=== PATIENT | female | born 1950 | race Caucasian/White ===

== ENCOUNTER 2017-02-02 01:28 | Observation (INO) ==
[2017-02-02] MEDS ORDERED: Aspirin 81 MG TAB.CHEW PO ONE (01:44)
--- NOTE | 2017-02-02 01:45 | Emergency Department Note ---
Disposition Clinical Impression: Chest pain of uncertain etiology Disposition: Admitted As Inpatient Condition: Fair Time of Disposition: 04:15 Chest Pain HPI - General Chief Complaint: ED Chest Pain Stated Complaint: Chest pain Time Seen by Provider: 02/02/17 01:41 Source: patient Limitations: no limitations Vital Signs Reviewed: Yes Nursing Notes Reviewed: Yes - History of Present Illness HPI Narrative: Ms. Henry, 66-year-old female, presents from home by EMS with concerns of chest pain. Patient notes this started 2 weeks ago and has been intermittent. Described as a sharp stabbing located at the left lower sternal border and beneath her breast with radiation toward her shoulder and interscapular daily. Worse with deep inspiration and with cough. Patient notes that she recovered from bronchitis 2 weeks ago after which her chest pain began. She was previously evaluated at outside hospital hospital and told she had musculoskeletal pain secondary to cough secondary to bronchitis. Her pain has persisted and worsened despite having not coughed in the past 2 weeks. She has associated dyspnea. No nausea, vomiting, diaphoresis. Does have a history of NM without stents. PMH: CHF, COPD, ACS without stents. Severity scale (1-10): 8 - Related Data Home Medications Medication Instructions Recorded Confirmed Clopidogrel [Plavix] 20 mg PO DAILY 02/02/17 02/02/17 Gabapentin [Neurontin] 200 mg PO BID 02/02/17 02/02/17 Levothyroxine [Synthroid] 50 mcg PO DAILY 02/02/17 02/02/17 Metoprolol XL (24 HR) Succ [Toprol 10 mg PO DAILY 02/02/17 02/02/17 XL] Ropinirole HCl [Requip] 3 mg PO BID 02/02/17 02/02/17 Simvastatin [Zocor] 25 mg PO DAILY 02/02/17 02/02/17 Allergies Allergy/AdvReac Type Severity Reaction Status Date / Time No Known Allergies Allergy Verified 02/02/17 01:32 All systems ED: reviewed and negative except as stated. Chest Pain PMH - Past Medical History Medical history: Reports: CHF, COPD, myocardial infarction, TIA - Social History Smoking Status: Never smoker Alcohol use: Reports: none Drug use: Reports: none Physical Exam Vital Signs Reviewed General: Patient is alert, oriented, and in no acute distress. HEENT: No facial asymmetry. Head is normocephalic and atraumatic. PERRLA. Oral mucosa moist. Trachea midline. Cardiovascular: Heart regular rate and rhythm without clicks, rubs, gallops, or murmurs. No JVD. PMI nondisplaced. 1+ pitting pedal edema bilaterally. Posterior tibial and bilateral radial pulses equal and 2/4. No carotid bruit. No parasternal pain to palpation. Respiratory: Symmetric chest rise with good respiratory effort. Bilateral breath sounds are clear without wheezing, crackles, or rhonchi. Abdomen: Bowel sounds present normoactive -4 quadrants. Abdomen is soft, nondistended, and nontender. No organomegaly noted. Musculoskeletal: Left-sided rib pain beneath the patient's breast extending to the left axillary line. Soft tissue tenderness the patient's left shoulder in the distribution of the pectoralis minor. Psych: Patient's affect is appropriate for situation. - General Limitations: no limitations General appearance: alert, in no apparent distress Course Course Narrative: Patient's history is concerning with her also comorbidities including previous NM. With her previous NM, she was completely asymptomatic. The patient does appear to have a musculoskeletal component of reported pain, however she does have some concerning characteristics such as radiation interscapular. She does not have any parasternal pain to palpation. EKG is unremarkable. Chest x-ray negative as read by radiology. Lab work is unremarkable specifically negative troponin. Patient vital signs remained stable and patient is stable. I discussed the patient concerns for chest pain of uncertain etiology and the need to rule out acute coronary syndrome. She agrees to admission to the hospital for continued evaluation. Spoke with the admitting hospitalist who agrees to accept her to his service. Vital Signs Temperature 98.1 F 02/02/17 01:30 Pulse Rate 104 02/02/17 01:30 Respiratory Rate 22 02/02/17 01:30 Blood Pressure 176/92 02/02/17 01:30 O2 Sat by Pulse Oximetry 96 02/02/17 01:30 Temperature 98.1 F 02/02/17 01:30 Pulse Rate 88 02/02/17 03:27 Respiratory Rate 18 02/02/17 03:27 Blood Pressure 138/69 02/02/17 03:27 O2 Sat by Pulse Oximetry 95 02/02/17 03:27 Oxygen Delivery Oxygen Delivery Room Air Chest Pain - Lab Data Lab results reviewed: Yes I reviewed the patient's lab results. Result diagrams: 02/02/17 01:50 02/02/17 01:50 Lab Results 02/02/17 02/02/17 02/02/17 Range/Units 01:50 01:50 01:50 WBC 11.5 H (4.3-11.1) K/mcL RBC 4.48 (3.82-4.97) M/mcL Hgb 12.6 (11.5-15.4) g/dL Hct 38.7 (35.3-44.9) % MCV 86.4 (83.0-100.0) fL MCH 28.1 (28.0-33.3) pg MCHC 32.6 (31.6-35.5) g/dL RDW 13.9 (11.5-14.5) % Plt Count 242 (140-400) K/mcL MPV 10.1 (9.4-12.4) fL Immature Gran % 0.4 (0-4) % Seg Neutrophils % 62.8 % Lymphocytes % 27.2 % Monocytes % 7.7 % Eosinophils % 1.4 % Basophils % 0.5 % Neutrophils # 7.2 (1.6-8.9) K/mcL Lymphocytes # 3.1 (0.6-4.6) K/mcL Monocytes # 0.9 (0.0-1.3) K/mcL Eosinophils # 0.2 (0.0-0.6) K/mcL Basophils # 0.1 (0.0-0.2) K/mcL PT 10.9 (9.4-12.1) Seconds INR 1.0 APTT 30.7 (26.0-36.0) Seconds Sodium 141 (136-145) mEq/L Potassium 3.3 L (3.5-4.5) mEq/L Chloride 103 (98-109) mEq/L Carbon Dioxide 28 (19-29) mEq/L BUN 22 H (7-20) mg/dL Creatinine 0.94 (0.57-1.11) mg/dL Est GFR ( Amer) > 60 (> 60) Est GFR (Non-Af Amer) 60 (> 60) BUN/Creatinine Ratio 23 (6-26) Glucose 116 H (70-99) mg/dL Calculated Osmolality 296 (280-300) Calcium 9.0 (8.6-10.8) mg/dL Troponin I (0-0.03) ng/mL Lipase 36 (8-78) Units/L 02/02/17 Range/Units 01:50 WBC (4.3-11.1) K/mcL RBC (3.82-4.97) M/mcL Hgb (11.5-15.4) g/dL Hct (35.3-44.9) % MCV (83.0-100.0) fL MCH (28.0-33.3) pg MCHC (31.6-35.5) g/dL RDW (11.5-14.5) % Plt Count (140-400) K/mcL MPV (9.4-12.4) fL Immature Gran % (0-4) % Seg Neutrophils % % Lymphocytes % % Monocytes % % Eosinophils % % Basophils % % Neutrophils # (1.6-8.9) K/mcL Lymphocytes # (0.6-4.6) K/mcL Monocytes # (0.0-1.3) K/mcL Eosinophils # (0.0-0.6) K/mcL Basophils # (0.0-0.2) K/mcL PT (9.4-12.1) Seconds INR APTT (26.0-36.0) Seconds Sodium (136-145) mEq/L Potassium (3.5-4.5) mEq/L Chloride (98-109) mEq/L Carbon Dioxide (19-29) mEq/L BUN (7-20) mg/dL Creatinine (0.57-1.11) mg/dL Est GFR ( Amer) (> 60) Est GFR (Non-Af Amer) (> 60) BUN/Creatinine Ratio (6-26) Glucose (70-99) mg/dL Calculated Osmolality (280-300) Calcium (8.6-10.8) mg/dL Troponin I 0.01 (0-0.03) ng/mL Lipase (8-78) Units/L - Radiology Data Radiology results reviewed: Yes I reviewed the patient's radiology results. Chest X-Ray 02/02/17 01:44 IMPRESSION: No acute cardiopulmonary disease D/ / Dennis Ba MD / Dennis Ba MD Interpreting Provider: Dennis Ba MD - EKG Data EKG attestation: Yes I reviewed and interpreted this EKG. EKG results narrative: EKG dated 02/02/17 at 01:36 interpreted as sinus tachycardia with rate of 103. Normal intervals. 160, QRS 106, QT/QTC 344/43. Left axis. Nonspecific ST-T changes. No previous EKG for comparison. Heart Score - Score History: Slightly Suspicious EKG: Non Specific repolarisation Disturbance Age: 45-65 Risk Factors: Equal/Greater than 3 risk factor or history of atherosclerotic disease Troponin: Less than normal limit HEART Score Total: 4
[2017-02-02 01:59] LABS: Basophils # 0.1 K/mcL (0.0-0.2); Basophils % 0.5 %; Eosinophils # 0.2 K/mcL (0.0-0.6); Eosinophils % 1.4 %; Hematocrit 38.7 % (35.3-44.9); Hemoglobin 12.6 g/dL (11.5-15.4); Immature Granulocytes % 0.4 % (0-4); Lymphocytes # 3.1 K/mcL (0.6-4.6); Lymphocytes % 27.2 %; Mean Corpuscular HGB Conc 32.6 g/dL (31.6-35.5); Mean Corpuscular Hemoglobin 28.1 pg (28.0-33.3); Mean Corpuscular Volume 86.4 fL (83.0-100.0); Mean Platelet Volume 10.1 fL (9.4-12.4); Monocytes # 0.9 K/mcL (0.0-1.3); Monocytes % 7.7 %; Neutrophils # 7.2 K/mcL (1.6-8.9); Platelet Count 242 K/mcL (140-400); Red Blood Count 4.48 M/mcL (3.82-4.97); Red Cell Distribution Width 13.9 % (11.5-14.5); Segmented Neutrophils % 62.8 %
[2017-02-02 02:05] LABS: Prothrombin Time 10.9 Seconds (9.4-12.1)
[2017-02-02 02:08] LABS: Activated Partial Thrombo Time 30.7 Seconds (26.0-36.0)
[2017-02-02 02:14] LABS: BUN/Creatinine Ratio 23 (6-26); Blood Urea Nitrogen 22 mg/dL (7-20); Carbon Dioxide 28 mEq/L (19-29); Chloride 103 mEq/L (98-109); Glucose 116 mg/dL (70-99); Lipase 36 Units/L (8-78); Osmolality,Calculated 296 (280-300); Potassium 3.3 mEq/L (3.5-4.5); Sodium 141 mEq/L (136-145); eGFR For African Americans > 60 (> 60); eGFR For Non-African Americans 60 (> 60)
[2017-02-02] MEDS ORDERED: Aspirin 81 MG TAB.CHEW PO STA (02:42)
--- NOTE | 2017-02-02 02:42 | Emergency Department Note ---
START Narrative - START START: I examined this patient and my medical decision-making was reviewed with the MULTIMEDIA PRODUCER/PA/Advanced Practice Nurse/Resident Physician. I agree with the documented findings, disposition and treatment plan as described except to the extent set forth below. ED attending note: Patient seen with emergency medicine resident Dr. Boland. Please see a copy of his note for details of the H&P, evaluation, management and disposition of this patient. We independently had [id number] contact with the patient Briefly: This 66-year-old female history of prior heart attack smoker hypertensive presents here with chest pain no radiation to the neck or shoulder mild shortness of breath. No recent stress test. EKG nonspecific ST-T changes no acute ischemic changes noted. Troponin negative. Heart scores for which is equivalent to moderate risk. Patient will be recommended admission awaiting callback of hospitalist. The patient got aspirin. Disposition pending
[2017-02-02] MEDS ORDERED: Ondansetron 4 MG/2 ML VIAL IVP PRN (04:05)
[2017-02-02] MEDS ORDERED: Naloxone 0.4 MG/ML INJ IVP PRN (04:05)
[2017-02-02] MEDS: *HR* Heparin 5,000 UNIT/ML VIAL SQ SCH ×2 (04:49→18:19)
--- NOTE | 2017-02-02 05:09 | Internal Med History&Physical ---
Date of Encounter: 02/02/17 Time of Encounter: 04:55 Assessment and Plan (1) Chest pain of uncertain etiology Current visit: Yes Status: Acute Given cardiac history and clinical presentation, will admit to rule out ACS serial TNI, EKG pharm nuclear stress test in am f/u 2D echo consider cardiology evaluation if any of the above tests are positive for ischemia or new valvular dysfunction/worsening of LVEF nitroglycerin SL prn chest pain O2 supplementation as needed tele monitoring NPO at this time for cardiac testing (2) Hypertension Current visit: Yes Status: Chronic BP within acceptable range continue home medications Qualifiers: Hypertension type: essential hypertension Qualified Code(s): I10 - Essential (primary) hypertension (3) HLD (hyperlipidemia) Current visit: Yes Status: Chronic continue statin Qualifiers: Hyperlipidemia type: unspecified Qualified Code(s): E78.5 - Hyperlipidemia , unspecified (4) CHF (congestive heart failure) Current visit: Yes Status: Chronic no acute signs of CHF decompensation continue home medications Qualifiers: Congestive heart failure type: unspecified congestive heart failure type Congestive heart failure chronicity: chronic Qualified Code(s): I50.9 - Heart failure, unspecified (5) DVT prophylaxis Current visit: Yes Status: Acute Heparin SQ (6) Hypothyroidism Current visit: Yes Status: Chronic continue home meds Qualifiers: Hypothyroidism type: unspecified Qualified Code(s): E03.9 - Hypothyroidism , unspecified (7) Morbid obesity with BMI of 40.0-44.9, adult Current visit: Yes Status: Chronic Internal Medicine - H&P: HPI Chief complaint: chest pain Admitted From: Home Plans for Post Hospital Care: Home History of present illness: Ms. Henry is a 66 year old female with PMH of COPD, HTN, HLD, CHF, morbid obesity, hypothyroidism, and previous [place] who is admitted for evaluation of chest pain. Patient reports of having left lateral wall chest pain for the last two weeks secondary to severe coughing from acute bronchitis. However, last night she started having left sided chest pain with radiation to the neck and her left arm, which was similar to the pain she had when she had her [place] six years ago. States the pain resolved spontaneously but due to her [place] history she came to the ER for further evaluation. At this time she is resting comfortably in bed and denies any pain. Denies any cough, sob, palpitations, abd pain, n/v, fever, or chills. Patient reports of never smoking and has COPD due to second hand smoke. Not on home oxygen. Past Med Surg Social Fam HX - Past Medical History Medical history: CHF, COPD, myocardial infarction, TIA Psychiatric history: depression - Past Surgical History Surgical History: breast surgery, hysterectomy, knee replacement - Social History Smoking Status: Never smoker Smokeless Tobacco Status: No Alcohol use: none Drug use: none - Family History Mother Living Status: Age at : 87 Hx Family Cardiac Disorders: Yes (CHF) Hx Family Endocrine Disorder: Yes (DM) Father Living Status: Age at : 52 Hx Family Cardiac Disorders: Yes ([place]) Internal Medicine - H&P: Meds Clopidogrel [Plavix] 75 mg PO DAILY 02/02/17 [History] Furosemide [Lasix] 40 mg PO DAILY 02/02/17 [History] Gabapentin [Neurontin] 200 mg PO BID 02/02/17 [History] Levothyroxine [Synthroid] 50 mcg PO DAILY 02/02/17 [History] Metoprolol XL (24 HR) Succ [Toprol XL] 25 mg PO DAILY 02/02/17 [History] Potassium Chloride [K-Tab ER] 20 mg PO DAILY 02/02/17 [History] Ropinirole HCl [Requip] 3 mg PO BID 02/02/17 [History] Simvastatin [Zocor] 10 mg PO DAILY 02/02/17 [History] Allergies No Known Allergies Allergy (Verified 02/02/17 01:32) All Systems PM: A 10-system review of systems was performed and is negative for pertinent findings except as documented above in the HPI. - Constitutional Constitutional: as per HPI - Constitutional Vitals: Temp Pulse Resp BP Pulse Ox 97.9 F 81 15 122/76 96 02/02/17 04:21 02/02/17 04:21 02/02/17 04:21 02/02/17 04:21 02/02/17 04:21 General appearance: Present: cooperative, A&O X 3, morbidly obese, no acute distress, answers questions appropriately - Head Head exam: Present: atraumatic, normocephalic - Respiratory Respiratory exam: Present: CTAB. Absent: respiratory distress, wheezes - Cardiovascular Cardiovascular exam: Present: RRR, +S1, +S2. Absent: diastolic murmur, gallop, rubs, systolic murmur - GI/Abdominal GI/Abdominal exam: Present: normal bowel sounds, soft, no peritoneal signs. Absent: distended, tenderness - Extremities Exam Extremities exam: Present: pedal edema (trace ankle edema), warm, radial pulses palpable and symetrical. Absent: calf tenderness - Neurological Exam Neurological exam: Present: alert, oriented X3 - Psychiatric Psychiatric exam: Present: normal affect, normal mood Internal Med - H&P Results - Labs CBC & Chem 7: 02/02/17 01:50 02/02/17 01:50
[2017-02-02] MEDS ORDERED: Nitroglycerin 0.4 MG TAB.SUBL SL PRN (05:12)
[2017-02-02] MEDS ORDERED: Regadenoson 0.4 MG/5 ML SYRINGE IVP ONE (06:14)
[2017-02-02 06:27] LABS: Chol/HDL Ratio 4.8 (0-4.9)
[2017-02-02] MEDS ORDERED: Perflutren Lipid Microsphere 1.3 ML in 0.9 % Sodium Chloride 8.7 ML IVP ONE (09:09)
[2017-02-02] MEDS: Furosemide 40 MG TABLET PO SCH (10:06)
[2017-02-02] MEDS: Gabapentin 100 MG CAPSULE PO SCH ×2 (10:06→20:43)
[2017-02-02] MEDS: Metoprolol XL (24 HR) Succ 25 MG TAB.ER.24H PO SCH (10:06)
--- NOTE | 2017-02-02 13:38 | Electrocardiograph Report ---
[address] [place] [address] Test Date: 2017-02-02 Pat Name: Yue Henry Department: 104 Room: 3B Gender: F Scientific Illustrator: TAMEKA : 1950 Requested By: Frankie Boland Order Number: [id number] Reading MD: Chris Kaur MD Measurements Intervals Perkins Rate: 103 P: 63 NV: 160 QRS: -31 QRSD: 106 T: 46 QT: 344 QTc: 403 Interpretive Statements SINUS TACHYCARDIA MARKED LEFT AXIS DEVIATION BASELINE ARTIFACT Poor R wave progression Electronically Signed On 02-02-2017 13:37:17 EDT by Chris Kaur MD
--- NOTE | 2017-02-02 17:14 | Event Note ---
Date of Encounter: 02/02/17 Time of Encounter: 12:30 Patient seen and examined. On examination, patient sitting upright in bed initially sleep and awakened easily to voice. Once awake, patient stating that she is weak and tired. She states that she has been increasingly more weak and tired for the past several months. She states she was able to ambulate to and from the bathroom and states that her gait felt steady but she still felt weak. She was offered occupational and physical therapy evaluations but declined. Chest x-ray negative. Echocardiogram unremarkable with ejection fraction of 60 % and mild diastolic dysfunction. Patient denies pedal edema. On examination, trace, nonpitting edema noted bilaterally. Patient denies shortness of breath above her norm. She is tolerating room air well. Second part of her stress test this tomorrow, will await results. In the meantime, regarding her increased weakness over the past several months, we will check TSH, B12, folate and A1C levels although suspect lifestyle and morbid obesity is playing a factor , will rule out other causes. Patient also stating that she has severe restless leg syndrome and states that she had a sleep study that revealed that her legs jerk approximately every 7 seconds while asleep. This could also be a contributing factor but she was diagnosed with RLS and started on Requip 7 years ago and her increased fatigue has only been for a few months. Awaiting second part of stress test tomorrow. ITS Impressions Chest X-Ray 02/02/17 01:44 IMPRESSION: No acute cardiopulmonary disease D/ / Dennis Ba MD / Dennis Ba MD Interpreting Provider: Dennis Ba MD Echo with imaging enhancement agent impressions: LVEF 60%. Normal LV chamber size, wall thickness and function. Mild left ventricular diastolic dysfunction. Definity echo contrast was used. RV size and function appears normal but is not well visualized in all views. No significant valvular dysfunction. No pulmonary hypertension.
[2017-02-03] MEDS: *HR* Heparin 5,000 UNIT/ML VIAL SQ SCH (06:08)
[2017-02-03 06:33] LABS: BUN/Creatinine Ratio 24 (6-26); Blood Urea Nitrogen 20 mg/dL (7-20); Calcium 8.6 mg/dL (8.6-10.8); Carbon Dioxide 31 mEq/L (19-29); Chloride 104 mEq/L (98-109); Glucose 96 mg/dL (70-99); Magnesium 2.1 mg/dL (1.6-2.6); Osmolality,Calculated 294 (280-300); Phosphorous 3.5 mg/dL (2.3-4.7); Potassium 4.1 mEq/L (3.5-4.5); Sodium 141 mEq/L (136-145); eGFR For African Americans > 60 (> 60); eGFR For Non-African Americans > 60 (> 60)
[2017-02-03 06:55] LABS: Thyroid Stimulating Hormone 1.314 mcIU/mL (0.350-4.840)
[2017-02-03 07:02] LABS: Folate 10.4 ng/mL (7.0-31.4)
[2017-02-03 08:28] LABS: Basophils # 0.1 K/mcL (0.0-0.2); Basophils % 0.7 %; Eosinophils # 0.3 K/mcL (0.0-0.6); Eosinophils % 3.3 %; Hematocrit 37.4 % (35.3-44.9); Hemoglobin 11.5 g/dL (11.5-15.4); Immature Granulocytes % 0.5 % (0-4); Lymphocytes # 2.2 K/mcL (0.6-4.6); Lymphocytes % 28.8 %; Mean Corpuscular HGB Conc 30.7 g/dL (31.6-35.5); Mean Corpuscular Hemoglobin 27.8 pg (28.0-33.3); Mean Corpuscular Volume 90.3 fL (83.0-100.0); Mean Platelet Volume 10.8 fL (9.4-12.4); Monocytes # 0.7 K/mcL (0.0-1.3); Monocytes % 8.9 %; Neutrophils # 4.4 K/mcL (1.6-8.9); Platelet Count 212 K/mcL (140-400); Red Blood Count 4.14 M/mcL (3.82-4.97); Red Cell Distribution Width 14.1 % (11.5-14.5); Segmented Neutrophils % 57.8 %
[2017-02-03] MEDS: Furosemide 40 MG TABLET PO SCH (08:39)
[2017-02-03] MEDS: Metoprolol XL (24 HR) Succ 25 MG TAB.ER.24H PO SCH (08:39)
[2017-02-03] MEDS: Gabapentin 100 MG CAPSULE PO SCH (08:39)
--- NOTE | 2017-02-03 10:24 | Nuclear Medicine Stress Report ---
Regadenoson Nuclear 2 day Name: Yue Henry Date of Study: 02/02/2017 Date: 1950 Ht: 66.0 in Medical Record#: [id number] Age: 66 Wt: 271.0 lb Gender: Female Order #: [id number] Location: [facility] Room: [facility] Supervising Provider: Quan Delcid CNP Reading Physician: Tomas Currie DO, CURTIS CAZARES FASNC Ordering Physician: Katya Pineda CNP Primary Care Physician: Dennis Mcnally MD Stress Technologist: Bettina Cho REVIVAL CLERK, CCT Live Study Manager: Favio Morrison Indications: Chest Pain Impression: Pharmacologic stress ECG is negative for ischemia at level of heart rate achieved. Gated EF = 75%. Small sized, mild intensity, fixed apex and apical inferior defect c/w artifact. Perfusion imaging was negative for ischemia or infarct. History: Hypertension Hypercholesteremia Stress Test Summary: Stress Test Type: Pharmacologic Regadenoson 0.4mg/5ml given IV Baseline Information: Initial Heart Rate: 73 Blood Pressure: 112/68 Stress Information: Test Terminated Due to (primary): As per protocol Maximum Blood Pressure: 112/68 Maximum Heart Rate: 90 Percent Maximum Heart Rate Achieved: 58 Double Product: [id number] METS Reached: 1 Symptoms: No chest symptoms Nuclear Summary: SPECT myocardial perfusion imaging using Tc99m Sestamibi given intravenously was performed at rest and following cardiac stress testing. The resting images were obtained following initial dose of 35.2 mCi. Following stress an additional dose of 33.0 mCi was given at peak exercise or 30 seconds post regadenoson infusion. Medication Given: Time Medication Dose Units Route Findings: Stress Note * Resting ECG demonstrated normal sinus rhythm. * No baseline arrhythmias were noted. * Pharmacologic stress ECG is negative for ischemia at level of heart rate achieved. * No arrhythmias were noted during stress. * Patient had no chest pain during stress. Hemodynamic responses * Normal hemodynamic responses to pharmacologic stress. Study Quality * Study quality is average. Gated EF % * Gated EF = 75%. Left Ventricle * LVEDV = 128 mL. Apical Perfusion Rest * The apex and apical inferior segments show a mild reduction in perfusion. Apical Perfusion Stress * The apex and apical inferior segments show a mild reduction in perfusion. TID * No evidence of transient ischemic dilatation. TID ratio * TID ratio = 1.18. Lung Uptake * There is no evidence of increase lung uptake. Updated by Tomas Currie DO, FACOvidio, CURTIS, ANDREW on 02/03/2017 10:17:13 AM electronically signed on 02/03/2017 10:18:23 AM with status of Final
[2017-02-03 11:55] VITALS: BP 131/74
--- NOTE | 2017-02-03 12:54 | Discharge Summary ---
Date of Encounter: 02/03/17 Time of Encounter: 12:00 - Discharge Diagnosis (1) Chest pain of uncertain etiology Priority: Primary Status: Resolved Comments: Patient denied chest pain or shortness of breath throughout this admission. ACS ruled out. (2) Severe depression Priority: Primary Status: Acute Comments: Patient with multiple social stressors, she is severely depressed, she denied suicidal ideation, recommend close outpatient follow-up with her established counseling. (3) Hypertension Priority: Secondary Status: Chronic Comments: Controlled on day of discharge, follow-up outpatient (4) HLD (hyperlipidemia) Priority: Secondary Status: Chronic Comments: Triglycerides 308, LDL 103, total cholesterol 208. Recommend continuing statin and low cholesterol diet. Qualifiers: Hyperlipidemia type: unspecified Qualified Code(s): E78.5 - Hyperlipidemia , unspecified (5) CHF (congestive heart failure) Priority: Secondary Status: Chronic Comments: Chronic diastolic heart failure, no acute exacerbation. Patient denies shortness of breath or pedal edema worse than her norm. She is on furosemide at home, follow-up outpatient. Qualifiers: Congestive heart failure type: diastolic Congestive heart failure chronicity: chronic Qualified Code(s): I50.32 - Chronic diastolic (congestive ) heart failure (6) DVT prophylaxis Priority: Primary Status: Acute Comments: Subcutaneous heparin while admitted (7) Hypothyroidism Priority: Secondary Status: Chronic Comments: TSH normal Qualifiers: Hypothyroidism type: unspecified Qualified Code(s): E03.9 - Hypothyroidism , unspecified (8) Morbid obesity with BMI of 40.0-44.9, adult Priority: Secondary Status: Chronic - Discharge Medications Home Medications: Clopidogrel [Plavix] 75 mg PO DAILY 02/02/17 [History] Diclofenac Sodium [Voltaren] 1 appl TP QID 02/02/17 [History] Furosemide [Lasix] 40 mg PO DAILY 02/02/17 [History] Gabapentin [Neurontin] 200 mg PO BID 02/02/17 [History] Levothyroxine [Synthroid] 25 mcg PO DAILY 02/02/17 [History] Metoprolol XL (24 HR) Succ [Toprol Xl] 25 mg PO DAILY 02/02/17 [History] Potassium Chloride [K-Tab ER] 20 mg PO DAILY 02/02/17 [History] Ropinirole HCl [Requip] 3 mg PO BID 02/02/17 [History] Sertraline [Zoloft] 50 mg PO DAILY 02/02/17 [History] Simvastatin [Zocor] 10 mg PO DAILY 02/02/17 [History] Allergies/Adverse Reactions: Allergies No Known Allergies Allergy (Verified 02/02/17 01:32) Procedures/tests Complete & Pending: Procedures Performed prior 72 hours Category Date Time Status NM balta perf SPECT multi [NM] Routine Exams 02/02/17 05:05 Taken EV echocardiogram w enhance Routine Y 02/02/17 04:06 Completed SP pharm nuclear stress Routine Y 02/02/17 05:05 Completed Date of admission: 02/02/17 03:37 Primary care physician: PCP NO Discharging clinician: Katya Pineda Anticipated date of discharge: 02/03/17 - Patient Status Disposition: Home, Self-Care Condition: Fair Functional capacity at discharge: independent ambulation Overall status at discharge: patient is progressing back to baseline - Discharge Instructions Follow Up With: NO,PCP [Primary Care Provider] - Additional Instructions: Follow-up with new primary care provider as soon as possible. Follow up with your counselor as well. - Diet and Activity Activity: increase activity as tolerated Diet: low fat, low cholesterol, low salt diet Hospital course: Ms. Henry is a 66 year old female with past medical history of COPD, hypertension, hyperlipidemia, CHF, morbid obesity with BMI of 44, hypothyroidism , prior PA. Patient presented to the emergency department with a chief complaint of chest pain. Patient stating she had left lateral wall chest pain for the past 2 weeks prior to presentation that was secondary to severe coughing from acute bronchitis. However, on the night prior to presentation, she started to have left-sided chest pain with radiation to her neck and her left arm which is similar to the pain she had had with her prior PA approximately 6 years ago. Patient stating the pain resolved spontaneously but she elected to present to the emergency department for further evaluation. Workup in the emergency department unremarkable. Chest x-ray negative. Patient was admitted to the hospitalist service for further evaluation and management. Patient denied chest pain or shortness of breath throughout this admission. Her biggest concern is her extreme fatigue that have worsened over the past several months. Echocardiogram unremarkable with ejection fraction of 60%. Mild diastolic dysfunction noted-patient was euvolemic on examination throughout this admission. She had a 2 day nuclear stress test that was negative. Acute coronary syndrome ruled out. In further discussion with the patient and her extreme fatigue, TSH, B12, folate, and A1c levels normal. Patient did of old that she has severe depression stating that she has lost 4 siblings and her mother over the past couple years. She is also dealing with marital discord stating that she wants to go home and filed for divorce upon discharge. She denies suicidal or homicidal ideations. She states that she has a counselor that she has recently started seeing. She also states that her PCP has left, and she needs another one near her [facility]. Also of note , while admitted, patient was ambulatory to and from the bathroom without difficulty but she stated that she just had generalized weakness. She was offered occupational and physical therapy evaluations but she declined. She denies recent falls at home. With acute coronary syndrome and suicidal ideation ruled out, she was discharged home in stable condition with close outpatient follow-up recommended. ITS Impressions Chest X-Ray 02/02/17 01:44 IMPRESSION: No acute cardiopulmonary disease D/ / Dennis Ba MD / Dennis Ba MD Interpreting Provider: Dennis Ba MD Echo with imaging enhancement agent impressions: LVEF 60%. Normal LV chamber size, wall thickness and function. Mild left ventricular diastolic dysfunction. Definity echo contrast was used. RV size and function appears normal but is not well visualized in all views. No significant valvular dysfunction. No pulmonary hypertension. Regadenosen nuclear 2 day impression: Pharmacologic stress ECG is negative for ischemia at level of heart rate achieved. Gated ejection fraction 75%. Small size, mild intensity, fixed apex and apical inferior defect consistent with artifact. Perfusion imaging was negative for ischemia or infarct. - Time Spent with Patient Total time spent providing and/or coordinating discharge services: - Constitutional Vitals: Temp Pulse Resp BP Pulse Ox 97.7 F 79 16 131/74 94 02/03/17 11:55 02/03/17 11:55 02/03/17 11:55 02/03/17 11:55 02/03/17 11:55 General appearance: Present: cooperative, A&O X 3, morbidly obese, pleasant, no acute distress, answers questions appropriately - Head Head exam: Present: atraumatic, normocephalic - Eye Eye exam: Present: PERRL, conjuntiva pink, sclera anicteric Pupils: Present: PERRL - Neck Neck exam general surgery: Present: supple, trachea midline. Absent: lymphadenopathy - Respiratory Respiratory exam: Present: CTAB. Absent: accessory muscle use, rales, respiratory distress, rhonchi, wheezes - Cardiovascular Cardiovascular exam: Present: RRR, +S1, +S2. Absent: diastolic murmur, gallop, rubs, systolic murmur - GI/Abdominal GI/Abdominal exam: Present: normal bowel sounds, soft, no peritoneal signs. Absent: distended, tenderness - Extremities Exam Extremities exam: Present: pedal edema (trrace; nonpitting- pt stating normal), warm, radial pulses palpable and symetrical. Absent: calf tenderness, cyanotic - Neurological Exam Neurological exam: Present: alert, CN II-XII intact, normal gait, oriented X3, no focal deficits, strengths equal and symetr throughout. Absent: pronater drift, facial droop, speech deficit - Psychiatric Psychiatric exam: Present: depressed, flat affect. Absent: suicidal ideation - Skin Skin exam: Present: dry, intact, normal color, warm
== END 2017-02-03 14:05 | disposition home or self-care (01) ==
LOC: EMEROO 01:28 → 3BNU 01:28
PROVIDERS: ADMIT Internal Medicine; ATTEND Nurse Practitioner Family